=== PATIENT | female | born 1955 | race Two or more races ===

== ENCOUNTER 2024-03-10 09:29 | Outpatient (AMB) | payer MEDICARE, SELFPAY ==
[2024-03-10 09:48] VITALS: BP 136/84; PULSE 73; RESP 19; TEMP 35.5; O2SAT 98; BMI 32.6
--- NOTE | 2024-03-10 09:48 | ORTHONT_ITS ---
Vital signs 03/10/24 09:48 Height 1.52 m Height Method Stated Weight 75.892 kg Weight Measurement Method Standing Scale BMI 32.6 BP 136/84 H Blood Pressure Source Automatic Cuff Blood Pressure Location Right Upper Arm Position Sitting Respiration 19 Pulse 73 Pulse Source Monitor Temp 95.9 F L Temp Source Temporal Artery Scan Pulse Oximetry (%) 98 Oxygen Delivery Method Room Air Med/Allergies Allergies & Medications Allergies morphine Allergy (Verified 03/10/24 09:49) Medication Reconciliation cyclobenzaprine 5 mg tablet 5 mg PO QHS 03/10/24 [History Confirmed 03/10/24] ibuprofen 400 mg tablet 400 mg PO Q8H 03/10/24 [History Confirmed 03/10/24] linaclotide 145 mcg capsule (Linzess) 145 mcg PO QAM 03/10/24 [History Confirmed 03/10/24] lisinopril 20 mg tablet 20 mg PO QDAY 03/10/24 [History Confirmed 03/10/24] omeprazole 40 mg capsule,delayed release 40 mg PO QDAY 03/10/24 [History Confirmed 03/10/24] zolpidem 10 mg tablet 10 mg PO QHS 03/10/24 [History Confirmed 03/10/24] Subjective Immunization / Flu Flu Vaccine in the Last 12 Months: Yes Flu Vaccine Exclusion Criteria: Already Received History of Present Illness Chief complaint: Bilateral knee pain Andie is a pleasant 68-year-old female with bilateral knee pain worse on the right. She has tried 3 injections in the past as well as ibuprofen and physical therapy. She reports persistent knee pain. She has had a longstanding history of knee pain that worsened within the last year. The pain is diffuse Review of Systems Review of Systems: All systems negative unless otherwise noted in HPI. Exam Exam Patient is in no acute distress and is cooperative with the examination today. Breathing is nonlabored. In no respiratory distress. Bilateral extremities were evaluated and demonstrates sensation intact to light touch. Palpable pedal pulses are present. No significant edema is present. Bilateral hips were examined. The patient has no pain with log roll of the hips. Internal rotation to 30 degrees and external rotation to 30 degrees is painless. Negative FADIR. The left knee was examined. The left knee is in [varus] alignment. Range of motion from [0-115] degrees. Knee is stable to varus and valgus as well as AP translation with <5mm. Patient has a [negative] McMurrays. There is [no] pain with patellofemoral compression and [no] crepitus noted. The knee is [tender] to palpation [medially]. The right knee was also examined. The right knee is in [varus] alignment. Range of motion from [0-120] degrees. Knee is stable to varus and valgus as well as AP translation with <5mm. Patient has a [negative] McMurrays. There is [no] pain with patellofemoral compression and [no] crepitus noted. The knee is [tender] to palpation [medially]. An MRI is dated 11/11/2023. This demonstrates diffuse cartilage thinning of the medial compartment as well as a subchondral impaction injury of the femoral condyle. There is also a complex tear of the medial meniscus Assessment and Plan Problem List (1) Degenerative arthritis of knee, bilateral: Status: Acute Plan: Patient is a 68-year-old female with bilateral knee pain and bilateral knee arthritis worse on the right with a complex tear of the medial meniscus. We discussed the degenerative medical tear that usually treated nonoperatively. We will get x-rays to see how her knee looks. We will discuss different treatment options depending on how severe the arthritis is. She has she has tried a decent amount of conservative treatment already Advanced Care Planning Discussion Advance care planning discussed with:: patient Office Procedures GNS Level of Care Nursing/Assessment Patient Status: Initial/New Patient Nursing Assessment/Reassesment: Medication Reconciliation, Update PMH in EMR and Vital Signs Coordination of Care: Complex Care and Chronic Disease 1-5, Education Complex Pt/Fam, Consent,records obtained, informed consent, 1 Ins Authorization, Lab and Imaging orders, Results/Orders obtained and Staff clarify orders Special Needs: Language special needs New Patient Charge New Patient Point Assignment: [id number] New Patient Point 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
== END 2024-03-10 09:57 | disposition home or self-care (01) ==
LOC: HODSRG 09:29
PROVIDERS: PCP Family Medicine; Referring Provider Family Medicine; Supervising Provider Orthopaedic Surgery Adult Reconstructive Orthopaedic Surgery; Visit Provider Orthopaedic Surgery Adult Reconstructive Orthopaedic Surgery
DX: M17.0 Bilateral primary osteoarthritis of knee (principal); M25.562 Pain in left knee; M25.561 Pain in right knee; S83.231D Complex tear of medial meniscus, current injury, right knee, subsequent encounter; X58.XXXD Exposure to other specified factors, subsequent encounter; E78.00 Pure hypercholesterolemia, unspecified
CPT/HCPCS: 99204; G0463

== ENCOUNTER 2024-04-03 09:13 | Outpatient (AMB) | payer MEDICARE, SELFPAY ==
[2024-04-03 09:23] VITALS: BP 153/78; PULSE 73; RESP 18; TEMP 36.6; O2SAT 98; BMI 33.3
--- NOTE | 2024-04-03 09:23 | PD.ORTHCLVIS ---
Vital signs 04/03/24 09:23 Height 1.52 m Height Method Stated Weight 76.912 kg Weight Measurement Method Standing Scale BMI 33.3 BP 153/78 H Blood Pressure Source Automatic Cuff Blood Pressure Location Right Upper Arm Position Sitting Respiration 18 Pulse 73 Pulse Source Monitor Temp 97.8 F Temp Source Temporal Artery Scan Pulse Oximetry (%) 98 Oxygen Delivery Method Room Air Med/Allergies Allergies & Medications Allergies morphine Allergy (Verified 04/03/24 09:23) Medication Reconciliation cyclobenzaprine 5 mg tablet 5 mg PO QHS 03/10/24 [History Confirmed 04/03/24] ibuprofen 400 mg tablet 400 mg PO Q8H 03/10/24 [History Confirmed 04/03/24] linaclotide 145 mcg capsule (Linzess) 145 mcg PO QAM 03/10/24 [History Confirmed 04/03/24] lisinopril 20 mg tablet 20 mg PO QDAY 03/10/24 [History Confirmed 04/03/24] omeprazole 40 mg capsule,delayed release 40 mg PO QDAY 03/10/24 [History Confirmed 04/03/24] zolpidem 10 mg tablet 10 mg PO QHS 03/10/24 [History Confirmed 04/03/24] meloxicam 7.5 mg tablet 7.5 mg PO QDAY #45 tabs 04/03/24 [Rx] Subjective Visit Visit for: follow up visit, knee and x-rays Immunization / Flu Flu Vaccine in the Last 12 Months: No Flu Vaccine Exclusion Criteria: No Exclusion Criteria History of Present Illness Chief complaint: f/u xrays results Andie is a pleasant 68-year-old female with bilateral knee pain worse on the right. She has tried 3 injections in the past as well as ibuprofen and physical therapy. She reports persistent knee pain. She has had a longstanding history of knee pain that worsened within the last year. The pain is diffuse Pain Pain level (0-10): 6 Pain duration: constant Pain location: inside (medial), outside (lateral), anterior and posterior Pain quality: sharp, dull and aching Pain timing: increases with activity Ambulatory data Ambulatory device: none Treatments Improvement with previous injections: No Improvement with PT: No Improvement with NSAIDS: no Review of Systems Review of Systems: All systems negative unless otherwise noted in HPI. Exam Exam Patient is in no acute distress and is cooperative with the examination today. Breathing is nonlabored. In no respiratory distress. Bilateral extremities were evaluated and demonstrates sensation intact to light touch. Palpable pedal pulses are present. No significant edema is present. Bilateral hips were examined. The patient has no pain with log roll of the hips. Internal rotation to 30 degrees and external rotation to 30 degrees is painless. Negative FADIR. The left knee was examined. The left knee is in [varus] alignment. Range of motion from [0-115] degrees. Knee is stable to varus and valgus as well as AP translation with <5mm. Patient has a [negative] McMurrays. There is [no] pain with patellofemoral compression and [no] crepitus noted. The knee is [tender] to palpation [medially]. The right knee was also examined. The right knee is in [varus] alignment. Range of motion from [0-120] degrees. Knee is stable to varus and valgus as well as AP translation with <5mm. Patient has a [negative] McMurrays. There is [no] pain with patellofemoral compression and [no] crepitus noted. The knee is [tender] to palpation [medially]. An MRI is dated 11/11/2023. This demonstrates diffuse cartilage thinning of the medial compartment as well as a subchondral impaction injury of the femoral condyle. There is also a complex tear of the medial meniscus Xrays demonstrate moderate joint space narrowing of the right Assessment and Plan Problem List (1) Degenerative arthritis of knee, bilateral: Status: Acute Plan: Patient is a 68-year-old female with bilateral knee pain and bilateral knee arthritis worse on the right with a complex tear of the medial meniscus. We discussed the degenerative memiscal tear that is usually treated nonoperatively. We recommend antiinflammatories and a cortisone injection. Plan Recommend knee cortisone injections as patient would like to proceed with conservative treatment at this time. The risks and benefits of the procedure were reviewed with the patient and patient gave verbal consent to continue with the procedure. Procedure: performed by Dr. Jensen Using sterile technique the Bilateral knees were thoroughly prepped with alcohol, and approximately 1 cc of Kenalog 40 mg/mL and 4 cc of 1% lidocaine was injected into each knee without resistance into the medial tibial femoral joint space. The patient tolerated the procedure. Recommend knee cortisone injections as patient would like to proceed with conservative treatment at this time. The risks and benefits of the procedure were reviewed with the patient and patient gave verbal consent to continue with the procedure. Procedure: performed by Dr. Jensen Using sterile technique the Bilateral knees were thoroughly prepped with alcohol, and approximately 1 cc of Kenalog 40 mg/mL and 4 cc of 1% lidocaine was injected into each knee without resistance into the medial tibial femoral joint space. The patient tolerated the procedure. Advanced Care Planning Discussion Advance care planning discussed with:: patient Office Procedures GNS Level of Care Nursing/Assessment Patient Status: Established Patient Nursing Assessment/Reassesment: Medication Reconciliation, Update PMH in EMR and Vital Signs Coordination of Care: Complex Care and Chronic Disease 1-5, Education Complex Pt/Fam, Consent,records obtained, informed consent, Results/Orders obtained and Staff clarify orders Special Needs: Language special needs Established Patient Charge Established Patient Point Assignment: 95 Established Patient Point Charge: EP Level 3 (80-115) Surgical Proc/IM SQ injection Major Surgical Procedure: Yes (bilateral knee injection ) Medication Given Medication Given Medication Given: Yes Documented Dose Given: 8 Route: Infiitration Medication Given Medication Given Medication Given: Yes Documented Dose Given: 2 Route: Infiitration Office Meds Xylocaine 10 mg/mL (1 %) injection solution Performing Provider: Sagar Jensen MD Performing Location: [facility] Administered by: Sagar Jensen MD on 04/03/24 10:33 Dose Route Admin Location Dispensed Lot Number Expiration Date [facility] [employer] 40 mL Infiltration 40 mL [id number] [facility] triamcinolone acetonide 40 mg/mL suspension for injection Performing Provider: Sagar Jensen MD Performing Location: [facility] Administered by: Sagar Jensen MD on 04/03/24 10:33 Dose Route Admin Location Dispensed Lot Number Expiration Date [facility] [employer] 80 mg intra-articular 2 mL [id number] [employer] Past Medical History Past Medical History Have you ever been diagnosed with any of the following: Cardiology Problems Hypercholesterolemia: Yes Respiratory Problems Smoking: No Smoking Exposure: No Musculoskeletal Problems Arthritis: Yes
== END 2024-04-03 09:38 | disposition home or self-care (01) ==
PROVIDERS: PCP Family Medicine; Referring Provider Family Medicine; Supervising Provider Orthopaedic Surgery Adult Reconstructive Orthopaedic Surgery; Visit Provider Orthopaedic Surgery Adult Reconstructive Orthopaedic Surgery
DX: M17.0 Bilateral primary osteoarthritis of knee (principal); M25.562 Pain in left knee; M25.561 Pain in right knee; E78.00 Pure hypercholesterolemia, unspecified
CPT/HCPCS: 20610; 99213; J3301; J3490; G0463